=== PATIENT | female | born 1950 | race Caucasian/White ===

== ENCOUNTER 2024-01-08 11:17 | Inpatient (IN) | payer MEDICARE ==
[~2024-01-08] VITALS: Ht 157.5 cm; Wt 51.2 kg
[2024-01-08] MEDS ORDERED: MAALOX 30 ML SUSP *UDC PO PRN (14:50)
[2024-01-08] MEDS ORDERED: MOM 30ML SUSPENSION UDC PO PRN (14:50)
[2024-01-08] MEDS ORDERED: SIMETHICONE 80MG CHEW TAB PO PRN (14:50)
[2024-01-08] MEDS ORDERED: MIRALAX *UNIT DOSE* 17GM PACKET PO PRN (14:50)
[2024-01-08 17:45] VITALS: BP 156/98; TEMP 97.2; O2SAT 74
[2024-01-08 18:22] VITALS: BP 144/84
[2024-01-08] MEDS ORDERED: ELIQ5TAB PO (18:59)
[2024-01-08] MEDS ORDERED: ACET-683 PO (18:59)
[2024-01-08] MEDS ORDERED: NORV5TAB PO (18:59)
[2024-01-08] MEDS ORDERED: MECL-136 PO (18:59)
[2024-01-08] MEDS ORDERED: HOME MED LIST COMPLETE! XX SCH (19:00)
[2024-01-08] MEDS: SENOKOT S TAB PO SCH (21:03)
[2024-01-08] MEDS: ACETAMINOPHEN TAB 650MG DOSE (2X325MG) PO PRN (21:03)
[2024-01-08] MEDS: APIXABAN 5 MG TAB (ELIQUIS) PO SCH (21:03)
[2024-01-08 21:05] VITALS: BP 150/86; TEMP 98.2; O2SAT 95
[2024-01-09 04:00] VITALS: BP 131/79; TEMP 98.2; O2SAT 96
[2024-01-09 07:02] LABS: BASO % 0.6 % (0.0-1.0); EOS # 0.1 10^3/uL (0.0-0.5); EOS % 1.7 % (0.0-3.0); HEMATOCRIT 39.9 % (36.0-47.0); HEMOGLOBIN 13.6 g/dl (12.0-15.5); LYMPH # 1.4 10^3/uL (1.5-5.0); LYMPH % 22.1 % (24.0-44.0); MEAN CORPUSCULAR HGB CONC 34.1 g/dl (32.0-36.5); MEAN CORPUSCULAR VOLUME 87.9 fl (80.0-96.0); MONO # 0.5 10^3/uL (0.0-0.8); MONO % 8.3 % (2.0-8.0); NEUTROPHILS # 4.3 10^3/uL (1.5-8.5); PLATELET COUNT, AUTOMATED 278 10^3/uL (150-450); RED BLOOD COUNT 4.54 10^6/uL (4.00-5.40); WHITE BLOOD COUNT 6.4 10^3/uL (4.0-10.0)
[2024-01-09 07:29] LABS: BLOOD UREA NITROGEN 9 MG/DL (9-23); CALCIUM LEVEL 9.3 MG/DL (8.3-10.6); CARBON DIOXIDE LEVEL 29 MMOL/L (20-31); CHLORIDE LEVEL 96 MMOL/L (98-107); CREATININE FOR GFR 0.51 MG/DL (0.55-1.30); GLOMERULAR FILTRATION RATE > 60.0 (>39); GLUCOSE, FASTING 108 MG/DL (74-106); POTASSIUM SERUM 4.1 MMOL/L (3.5-5.1); SODIUM LEVEL 127 MMOL/L (136-145)
[2024-01-09 08:50] LABS: THYROID STIMULATING HORMONE 1.576 uIU/ML (0.55-4.78)
[2024-01-09 08:53] LABS: OSMOLALITY SERUM 272 MOSM/KG (280-301)
[2024-01-09] MEDS ORDERED: amLODIPine 5 MG TAB PO SCH ×2 (09:00)
[2024-01-09] MEDS: ATORVASTATIN 20 MG TAB PO SCH (09:00)
[2024-01-09] MEDS: amLODIPine 5 MG TAB PO SCH (10:48)
[2024-01-09 12:00] VITALS: BP 149/93; TEMP 98.4; O2SAT 96
[2024-01-09 22:00] VITALS: BP 138/90; TEMP 98.7; O2SAT 94
[2024-01-10 04:00] VITALS: TEMP 98.1; O2SAT 98
[2024-01-10 12:00] VITALS: BP 128/84; TEMP 99; O2SAT 93
[2024-01-10 20:00] VITALS: BP 159/76; TEMP 98.2; O2SAT 93
[2024-01-11] MEDS ORDERED: APIXABAN 5 MG TAB (ELIQUIS) As Ordered ONE (08:40)
[2024-01-11] MEDS ORDERED: SENOKOT S TAB As Ordered ONE (08:40)
[2024-01-11] MEDS ORDERED: amLODIPine 5 MG TAB As Ordered ONE (09:00)
[2024-01-11] MEDS ORDERED: SIMVASTATIN 40 MG TAB As Ordered ONE (09:01)
[2024-01-11 12:00] VITALS: BP 146/90; TEMP 98.7; O2SAT 97
[2024-01-11 20:00] VITALS: BP 170/102; TEMP 97.5; O2SAT 100
[2024-01-11] MEDS: amLODIPine 5 MG TAB PO ONE (20:14)
[2024-01-11] MEDS: ANALGESIC BALM CRM 3OZ TOP SCH (20:15)
[2024-01-12 04:00] VITALS: BP 142/83; TEMP 98.1; O2SAT 92
[2024-01-12 12:00] VITALS: BP 129/85; TEMP 98.2; O2SAT 94
[2024-01-12 20:00] VITALS: BP 134/83; TEMP 98.9; O2SAT 98
[2024-01-13 04:00] VITALS: TEMP 97.9; O2SAT 96
[2024-01-13 12:00] VITALS: BP 131/77; TEMP 97.9; O2SAT 97
[2024-01-13 19:26] VITALS: BP 132/71; TEMP 97.8; O2SAT 95
[2024-01-14 03:01] VITALS: BP 166/80; TEMP 98.3; O2SAT 95
[2024-01-14] MEDS: ONDANSETRON 4MG TAB PO PRN (08:23)
[2024-01-14] MEDS: DICLOFENAC EPOLAMINE 1.3% PATCH TOP SCH (10:56)
[2024-01-14 11:14] LABS: HEMATOCRIT 39.4 % (36.0-47.0); HEMOGLOBIN 13.7 g/dl (12.0-15.5); MEAN CORPUSCULAR HEMOGLOBIN 30.3 pg (27.0-33.0); MEAN CORPUSCULAR HGB CONC 34.8 g/dl (32.0-36.5); MEAN CORPUSCULAR VOLUME 87.2 fl (80.0-96.0); PLATELET COUNT, AUTOMATED 274 10^3/uL (150-450); RED BLOOD COUNT 4.52 10^6/uL (4.00-5.40); WHITE BLOOD COUNT 5.5 10^3/uL (4.0-10.0)
[2024-01-14 11:29] LABS: ALBUMIN 3.7 G/DL (3.2-5.2); ALKALINE PHOSPHATASE 59 U/L (46-116); ALT/SGPT 11 U/L (7.0-40); AST/SGOT < 8 U/L (<34); BILIRUBIN,TOTAL 0.7 MG/DL (0.3-1.2); BLOOD UREA NITROGEN 12 MG/DL (9-23); CALCIUM LEVEL 9.6 MG/DL (8.3-10.6); CARBON DIOXIDE LEVEL 32 MMOL/L (20-31); CHLORIDE LEVEL 88 MMOL/L (98-107); CREATININE FOR GFR 0.51 MG/DL (0.55-1.30); GLOMERULAR FILTRATION RATE > 60.0 (>39); GLUCOSE, FASTING 113 MG/DL (74-106); POTASSIUM SERUM 3.9 MMOL/L (3.5-5.1); SODIUM LEVEL 124 MMOL/L (136-145); TOTAL PROTEIN 7.5 G/DL (5.7-8.2)
[2024-01-14 12:00] VITALS: BP 127/77; TEMP 98.1; O2SAT 97
[2024-01-14 14:58] LABS: OSMOLALITY URINE 475 MOSM/KG (50-1400)
[2024-01-14 15:00] LABS: SODIUM,RANDOM URINE 35 MMOL/L
[2024-01-14 15:56] LABS: OSMOLALITY SERUM 264 MOSM/KG (280-301)
[2024-01-14] MEDS ORDERED: LR 1,000 ML IV SCH (17:45)
[2024-01-14 20:00] VITALS: BP 132/77; TEMP 97.6; O2SAT 99
[2024-01-15 04:00] VITALS: BP 129/78; TEMP 98.1; O2SAT 98
[2024-01-15 07:04] LABS: BLOOD UREA NITROGEN 13 MG/DL (9-23); CALCIUM LEVEL 9.2 MG/DL (8.3-10.6); CARBON DIOXIDE LEVEL 34 MMOL/L (20-31); CHLORIDE LEVEL 92 MMOL/L (98-107); CREATININE FOR GFR 0.67 MG/DL (0.55-1.30); GLOMERULAR FILTRATION RATE > 60.0 (>39); GLUCOSE, FASTING 100 MG/DL (74-106); POTASSIUM SERUM 4.3 MMOL/L (3.5-5.1); SODIUM LEVEL 126 MMOL/L (136-145)
[2024-01-15 12:00] VITALS: BP_SYST 132; BP_SYST 145; BP_DIAS 73; TEMP 98.2; O2SAT 97
[2024-01-15 20:00] VITALS: BP 121/83; TEMP 97.9; O2SAT 98
[2024-01-16 04:00] VITALS: BP 138/80; TEMP 98.7; O2SAT 97
[2024-01-16 06:53] LABS: BLOOD UREA NITROGEN 11 MG/DL (9-23); CALCIUM LEVEL 9.2 MG/DL (8.3-10.6); CARBON DIOXIDE LEVEL 35 MMOL/L (20-31); CHLORIDE LEVEL 94 MMOL/L (98-107); CREATININE FOR GFR 0.57 MG/DL (0.55-1.30); GLOMERULAR FILTRATION RATE > 60.0 (>39); GLUCOSE, FASTING 100 MG/DL (74-106); POTASSIUM SERUM 4.1 MMOL/L (3.5-5.1); SODIUM LEVEL 129 MMOL/L (136-145)
[2024-01-16 12:00] VITALS: BP 142/74; TEMP 98.1; O2SAT 97
[2024-01-16 20:00] VITALS: BP 125/77; TEMP 97.2; O2SAT 95
[2024-01-17 04:00] VITALS: BP 154/90; TEMP 98.4; O2SAT 100
[2024-01-17 07:43] VITALS: BP 154/90
[2024-01-17] MEDS ORDERED: NORV5TAB PO (11:19)
[2024-01-17] MEDS ORDERED: ELIQ5TAB PO (11:19)
[2024-01-17 12:00] VITALS: BP 125/74; TEMP 98.5; O2SAT 97
== END 2024-01-17 13:45 | disposition home or self-care (01) | DRG 65 ==
LOC: M PM&R 17:22
PROVIDERS: ADMIT Physical Medicine & Rehabilitation; ATTEND Student in an Organized Health Care Education/Training Program
DX: I63.9 Cerebral infarction, unspecified (principal); E87.1 Hypo-osmolality and hyponatremia; R53.1 Weakness; I48.91 Unspecified atrial fibrillation; Z74.1 Need for assistance with personal care; Z74.09 Other reduced mobility; I10 Essential (primary) hypertension; R42 Dizziness and giddiness; M50.20 Other cervical disc displacement, unspecified cervical region; R51.9 Headache, unspecified; I73.00 Raynaud's syndrome without gangrene; Z79.899 Other long term (current) drug therapy; Z88.0 Allergy status to penicillin; M25.512 Pain in left shoulder; R73.03 Prediabetes